=== PATIENT | female | born 1940 | race Caucasian/White ===

== ENCOUNTER 2018-03-15 10:20 | Inpatient (IN) | payer MEDICARE, OTHER, SELFPAY ==
[2018-03-15] VITALS (16 sets, daily range): BP systolic 120–164; BP diastolic 64–100; PULSE 53–69; RESP 12–18; TEMP 36–36.8; O2SAT 95–100; BMI 27.4; BMI 25.8; BMI 25.9
--- NOTE | 2018-03-15 10:41 | EKG12_ITS ---
Test Reason : NEURO Blood Pressure : / mmHG Vent. Rate : 052 BPM Atrial Rate : 052 BPM P-R Int : 166 ms QRS Dur : 082 ms QT Int : 464 ms P-R-T Axes : 031 -12 -37 degrees QTc Int : 431 ms Sinus bradycardia Nonspecific ST and T wave abnormality Abnormal ECG Confirmed by JESENIA WHEAT, LUANA ([id number]), publication editor BRIAN GOLDSMITH ([id number]) on 03/17/2018 1:25:10 PM Referred By: Olegario Mayo Confirmed By:LUANA BA MD
--- NOTE | 2018-03-15 10:41 | CT_ITS ---
STUDY: CT BRAIN WITHOUT CONTRAST REASON FOR EXAM: Female, 78 years old. Left-sided facial droop and weakness. RADIATION DOSAGE (If Supplied By Facility): CTDIvol = ( 44.99 ) mGy, DLP = ( 762.36 ) mGycm TECHNIQUE: Transaxial CT imaging of the brain was performed without administration of intravenous contrast material. Multiplanar reformations are submitted for interpretation. Individualized dose optimization techniques were used for this CT. COMPARISON: None. FINDINGS: Normal soft tissue structures. There is hyperostosis frontalis internus. Normal size ventricles and extra-axial spaces for the patient's age. There are areas of decreased attenuation within the white matter tracts of the supratentorial brain, consistent with microvascular disease changes. There are small punctate calcifications of the basal ganglia which are seen in the aging brain as a normal variant. Normal brainstem. Normal cerebellum. There is no intracranial hemorrhage. There are no findings of an acute ischemic infarction. Normal visualized paranasal sinuses. CT/Brain/Head without Contrast IMPRESSION: No CT evidence of acute intracranial hemorrhage. Electronically Signed: Ainsley Vargas MD at 11:30 EDT , Service support ,
[2018-03-15 10:50] LABS: Bedside Glucose 116 mg/dL (70-110)
[2018-03-15 11:00] LABS: Absolute Lymphocyte Count 2.01 X10^3/ul (0.83-4.51); Absolute Neutrophil Count 3.6 X10^3/uL (2.0-7.7); Basophil# 0.03 X10^3/uL; Basophil% 0.5 % (0-1); Eosinophils% 3.2 % (0-5); Hematocrit 38.7 % (37-47); Lymphocyte # 2.01 X10^3/ul (4.0); Lymphocyte % 32.1 % (19-41); Mean Corp Hgb Conc 33.6 g/gl (32-36); Mean Corpuscular Volume 83.2 fL (81-99); Mean Platelet Vol. 9.1 fl (6.2-12.0); Monocyte# 0.45 X10^3/uL; Monocyte% 7.2 % (0-10); Neutrophil # 3.57 X10^3/uL (2.7-7.7); POSITIVE COUNT NO; POSITIVE DIFFERENTIAL NO; POSITIVE MORPHOLOGY NO; Platelet Count 227 K/mm3 (150-450); RBC Distribution Width CV 13.4 % (11.6-14.6); RBC Distribution Width SD 40.8 fl (35.1-43.9); Red Blood Count 4.65 M/mm3 (4.2-5.4); White Blood Count 6.3 K/mm3 (4.4-11.0)
[2018-03-15] MEDS: Ondansetron 4 MG/2 ML Vial IV ×2 (11:01→15:32)
--- NOTE | 2018-03-15 11:06 | RAD_ITS ---
STUDY: X-RAY CHEST REASON FOR EXAM: Female, 78 years old. Weakness, dizziness, shortness of breath. TECHNIQUE: Portable chest COMPARISON: 06/16/2016. FINDINGS: Generalized pulmonary hyperlucency especially at the apices with mild diffuse coarsening of the interstitium in a pattern most consistent with COPD/emphysema. Correlate smoking history. Minimal airspace opacities at the left lung base adjacent to the cardiac apex are most consistent with interstitial scar or atelectasis. The lungs are otherwise clear. No effusion or pneumothorax. Normal cardiomediastinal silhouette, sandy and pleural margins. No acute osseous or upper abdominal process. RAD/Chest 1 View IMPRESSION: No acute cardiopulmonary process. Electronically Signed: Mirza Patricio, at 12:02 EDT Tel , Service support ,
--- NOTE | 2018-03-15 11:12 | ED.VISSUMM ---
- ER Visit Summary Date of Service: 03/15/18 Chief Complaint: Unsteady gait History of Present Illness: The patient is a 78 F presenting feeling off balance. She states it started when she woke up this morning around 7 AM. States when she tries to walk she falls to the left side. She complains of a spinning sensation. She has not had these symptoms in the past. She denies chest pain or shortness of breath. Denies fever. She complains of mild nausea with no vomiting. No speech or vision changes. Physical Examination: Vitals are stable. Patient is afebrile. Alert no acute distress. HEENT exam is unremarkable. Neck is supple. Lungs are clear and equal bilaterally. Heart is regular rate and rhythm. Abdomen is soft nontender nondistended. Extremities are unremarkable. Skin is warm and dry. NIH equals 2, 1 for right lower extremity weakness, 1 for mild left facial droop. Remainder of exam is unremarkable. Emergency Department Course and Treatment: EKG is sinus rate of 52. Chest x-ray shows no acute process. CT head shows no acute process. CBC, chemistry unremarkable. Patient was given Zofran and continues to be nauseated. She is given Phenergan IV. Repeat NIH is 1, improvement of lower extremity weakness. Discussed with Dr. Mayo for admission. Disposition: Observation Impression: Vertigo, TIA This note was generated with [employer] dictation software. It may contain incorrect words, spelling, and punctuation that were not noted in review of the chart prior to signing ED Disposition - Plan for ED Patient: Chief Complaint: Neuro S/Sx Referrals: Jamal Durham MD [Primary Care Provider] -
[2018-03-15 11:15] LABS: Partial Thromboplast Time 26.1 Seconds (24.1-36.2); Prothrombin Time (Protime)PT. 12.9 SECONDS (11.7-14.9)
--- NOTE | 2018-03-15 11:15 | ED.DCSUM_ITS ---
- ER Visit Summary Date of Service: 03/15/18 Chief Complaint: Unsteady gait History of Present Illness: The patient is a 78 F presenting feeling off balance. She states it started when she woke up this morning around 7 AM. States when she tries to walk she falls to the left side. She complains of a spinning sensation. She has not had these symptoms in the past. She denies chest pain or shortness of breath. Denies fever. She complains of mild nausea with no vomiting. No speech or vision changes. Physical Examination: Vitals are stable. Patient is afebrile. Alert no acute distress. HEENT exam is unremarkable. Neck is supple. Lungs are clear and equal bilaterally. Heart is regular rate and rhythm. Abdomen is soft nontender nondistended. Extremities are unremarkable. Skin is warm and dry. NIH equals 2, 1 for right lower extremity weakness, 1 for mild left facial droo p. Remainder of exam is unremarkable. Emergency Department Course and Treatment: EKG is sinus rate of 52. Chest x-ray shows no acute process. CT head shows no acute process. CBC, chemistry unremarkable. Patient was given Zofran and continues to be nauseated. She is given Phenergan IV. Repeat NIH is 1, improvement of lower extremity weakness. Discussed with Dr. Mayo for admission. Disposition: Observation Impression: Vertigo, TIA This note was generated with [employer] dictation software. It may contain incorrect words, spelling, and punctuation that were not noted in review of the chart prior to signing ED Disposition - Plan for ED Patient: Chief Complaint: Neuro S/Sx Referrals: Jamal Durham MD [Primary Care Provider] -
[2018-03-15 11:19] LABS: Anion Gap 10 (5-15); BUN 16 mg/dL (7-18); BUN/Creat Ratio 15.8 RATIO (10-20); Calcium,Total 9.6 mg/dL (8.5-10.1); Chloride 109 mmol/L (98-107); Creatinine, Serum 1.01 mg/dL (0.55-1.02); EST Glomerular Filtration Rate 56 mL/min (>60); Est Glom Filt Rate - Afr Amer 68 mL/min (>60); Estimated Creatinine Clearance 40.64 ml/min; Glucose 119 mg/dL (74-106); Potassium 3.9 mmol/L (3.5-5.1); Sodium Level 142 mmol/L (136-145)
[2018-03-15] MEDS: proMETHazine 25 MG/ML Syringe 6.25 MG IV (12:31)
--- NOTE | 2018-03-15 13:22 | MRI_ITS ---
STUDY: MRA OF THE HEAD WITHOUT CONTRAST REASON FOR EXAM: Female, 78 years old. Headache and dizziness TECHNIQUE: 3-D [id number] (TOF) imaging was performed with MIPs. The study was performed unenhanced. COMPARISON: None. FINDINGS: Normal bilateral petrous carotid arteries. Normal right cavernous carotid artery with a normal supraclinoid bifurcation. Normal left cavernous carotid artery with a normal supraclinoid bifurcation. Normal right A1 segments of the anterior cerebral artery. Normal left A1 segments of the anterior cerebral artery. Anterior communicating artery not visualized consistent with normal developmental variant Normal bilateral A2 segments of the anterior cerebral arteries. Normal right M1 and M2 segments of the middle cerebral arteries, with a normal M1 bifurcation. Normal left M1 and M2 segments of the middle cerebral arteries, with a normal M1 bifurcation. Normal right posterior communicating artery (PCOM). Normal left posterior communicating artery (PCOM). Normal bilateral vertebral arteries. Normal basilar artery with a normal basilar bifurcation. The visualized bilateral superior cerebellar (SCA) arteries are normal. Normal bilateral P1, P2 and visualized P3 segments of the posterior cerebral arteries. There is no demonstrated aneurysm of the crow of Vazquez. There is no major vessel occlusion or hemodynamically significant stenosis. There is no demonstrated abnormality of the visualized brain. MRI/MRA Head ONLY without Contrast IMPRESSION: Normal MRA of the head Electronically Signed: Joce Bourne MD at 18:56 EDT , Service support ,
--- NOTE | 2018-03-15 13:22 | MRI_ITS ---
STUDY: MRI BRAIN WITHOUT CONTRAST REASON FOR EXAM: Female, 78 years old. Headache dizziness and nausea TECHNIQUE: Standardized multiplanar fat and water weighted pulse sequences were obtained. COMPARISON: None. FINDINGS: Normal size of the ventricles and extra-axial spaces for the patient's age. Mild periventricular white matter ischemic change without mass effect or restricted diffusion. Normal bilateral basal ganglia. Normal thalami. There is no extra-axial fluid accumulation. Normal flow voids within the major intracranial circulation suggesting patency by spin echo criteria. Empty sella deformity. Normal, infundibular stalk, optic chiasm and hypothalamus. Normal tectal plate and pineal gland. Normal midbrain, declan and medulla. Normal cerebellum. Normal basal cisterns. Normal bilateral temporal bones. Normal bilateral internal auditory canals. No demonstrated orbital abnormality, within the constraints of a routine brain study. Minor mucosal thickening of the left maxillary and bilateral ethmoid sinuses. Normal calvarium and skull base. Normal visualized soft tissue structures. Normal visualized upper cervical spine. MRI/Brain without Contrast IMPRESSION: Mild periventricular white matter ischemic changes without evidence for acute infarct. Empty sella deformity of uncertain clinical significance Minor mucosal thickening of left maxillary and bilateral ethmoid sinus Electronically Signed: Joce Bourne MD at 18:41 EDT , Service support ,
--- NOTE | 2018-03-15 13:22 | MRI_ITS ---
STUDY: MRA NECK WITHOUT CONTRAST REASON FOR EXAM: Female, 78 years old. Headaches and nausea TECHNIQUE: Source images were obtained, MIPs were performed. The study was performed unenhanced. COMPARISON: None. FINDINGS: RIGHT CAROTID ARTERIES: Normal right common carotid artery (CCA). Normal right common carotid bulb. Normal origin of the right internal carotid (ICA) artery without a hemodynamically significant stenosis. Normal visualized cervical portion of the right internal carotid artery. Normal origin of the right external carotid artery (ECA). LEFT CAROTID ARTERIES: Normal left common carotid artery (CCA). Normal left common carotid bulb. Normal origin of the left internal carotid (ICA) artery without a hemodynamically significant stenosis. Normal visualized cervical portion of the left internal carotid artery. Normal origin of the left external carotid artery (ECA). VERTEBRAL ARTERIES: Normal antegrade flow within the bilateral vertebral artery without a hemodynamically significant stenosis. MRI/MRA Neck without Contrast IMPRESSION: Normal bilateral cervical carotid and vertebral arteries. Electronically Signed: Joce Bourne MD at 19:09 EDT , Service support ,
--- NOTE | 2018-03-15 15:10 | HP.PCM_ITS ---
Problem List (1) Vertigo Status: Acute (2) NSTEMI (non-ST elevated myocardial infarction) Status: Chronic (3) HLD (hyperlipidemia) Status: Chronic (4) HTN (hypertension) Status: Chronic History of Present Illness Date of Admission: 03/15/18 Chief Complaint: vertigo The patient is a 78 year old F with a hx of NSTEMI, HLD, HTN, and migraine who presents to the ER with c/o vertigo. She states she was fine until this morning. When she stood up out of bed she felt unbalanced and was unable to walk straight. She attempted to walk in her house and was walking into [place]. She has had some nausea and a frontal headache today as well. She denies focal weakness, slurred speech, diplopia. She has no hx of stroke. She does not feel that the room is spinning. She states she has never felt this before. She feels that trying to focus her vision on something, and turning her head at all makes the unbalanced sensation come back. [] Past Medical History Past Medical History (Chronic Problems): Chronic Problems HTN (hypertension) (Chronic) HLD (hyperlipidemia) (Chronic) NSTEMI (non-ST elevated myocardial infarction) (Chronic) Allergies propoxyphene [From Darvon] Allergy (Unknown, Verified 03/15/18 10:23) Rash iron Adverse Reaction (Verified 03/15/18 10:23) Nausea Home Medications: Ambulatory Orders Medication Instructions Recorded Atenolol [Tenormin (beta nik)] 50 mg PO DAILY 02/03/15 Cetirizine HCl [Zyrtec] 10 mg PO DAILY 02/03/15 Fluticasone 0.05% [Flonase Nasal 2 spray NASAL DAILY 02/03/15 [place]] Simvastatin [Zocor] 40 mg PO QHS 02/03/15 traZODone [Desyrel] 100 mg PO QHS 02/03/15 Montelukast [Singulair] 10 mg PO DAILY 06/16/16 Acetaminophen [Tylenol Tablet] 650 mg PO Q6H PRN PRN #0 tablet 06/18/16 Aspirin E.C. 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 Lives: With Family Smoking Status: Never smoker Alcohol: None Drugs: None - *Family History Sibling History Items: Heart Disease Review of Systems Constitutional: Denies: Chills, Fever, Weight Change HEENT: Denies: Head Aches, Sinus Congestion, Sinus Drainage Cardiovascular: Denies: Chest Pain, Palpitations Respiratory: Denies: Cough, Shortness of breath at rest, Sputum production Gastrointestinal: Denies: Abdominal Pain, Nausea, Vomiting Genitourinary: Denies: Dysuria Musculoskeletal: Denies: Joint Pain, Joint Tenderness Skin: Denies: Rash, Wounds Neurological: Reports: Balance problems, Headaches. Denies: Blurred vision, Double vision, Change in Speech, Slurred speech, Confusion, Focal weakness, Numbness, Tingling, Seizures Psychiatric: Denies: Anxiety, Depression, Homicidal Ideations, Suicidal Ideations Hematologic/ Lymphatic: Denies: Easy Bruising, Easy Bleeding VTE Information - Inpt Only VTE Present on Admission: No VTE Mechan Device Prophylaxis: None VTE Pharm Prophylaxis ordered?: Yes Patient Problems: Active and Suspected Problems Vertigo (Acute) - Physical Exam General: Alert, Oriented x3, Cooperative HEENT: Atraumatic, PERRLA, EOMI, Normocephalic Neck: Supple, No JVD, Negative Carotid Bruits Lungs: Clear to auscultation, Normal air movement Cardiovascular: Regular rate, No murmurs Abdomen: Bowel Sounds Present, Soft, Non Tender Extremities: No edema, Capillary Refill Less than 3 Seconds Skin: No rashes, No breakdown Musculoskeletal: No Tenderness to Palpation of Joints or Extremities Neurological: Cranial nerves II-XII grossly intact, - - + nystagmus BL. Psych/Mental Status: Normal Affect, Appropriate, Alert and oriented to time, place, person, mood and affect Vital Signs Temp Pulse Resp BP Pulse Ox 97.6 F L 56 L 17 149/90 H 100 03/15/18 13:29 03/15/18 14:14 03/15/18 13:29 03/15/18 13:29 03/15/18 13:29 Oxygen Flow Rate (L/min) 1 Oxygen Delivery Method Nasal Cannula Weight: 155 lb 6.814 oz Body Mass Index (BMI) 25.8 Finger Stick Blood Glucose 116 Laboratory Tests Past 24 Hrs 10/09/18 10/09/18 10/09/18 10:49 10:49 10:49 WBC 6.3 RBC 4.65 Hgb 13.0 Hct 38.7 MCV 83.2 MCH 28.0 MCHC 33.6 RDW 13.4 RDW Differential 40.8 Plt Count 227 MPV 9.1 Immature Gran % (Auto) 0.000 Neut % (Auto) 57.0 Lymph % (Auto) 32.1 Callahan % (Auto) 7.2 Eos % (Auto) 3.2 Baso % (Auto) 0.5 Absolute Neuts (auto) 3.6 Absolute Lymphs (auto) 2.01 Total Counted Not Reportable PT 12.9 INR 1.0 APTT 26.1 Sodium 142 Potassium 3.9 Chloride 109 H Carbon Dioxide 23.0 Anion Gap 10 BUN 16 Creatinine 1.01 Estim Creat Clear Calc 40.64 Est GFR (MDRD) Af Amer 68 Est GFR (MDRD) Non-Af 56 L BUN/Creatinine Ratio 15.8 Glucose 119 H Calcium 9.6 Troponin I < 0.015 POC Glucose 03/15/18 10:44 POC Glucose 116 H Assessment/Plan All Active Problems Vertigo (Acute) Unstable angina pectoris (Acute) 1. Vertigo - marked by unsteady gait and feeling of inbalance. r/o CVA. CT brain neg. MRI/A pending. Defer neuro eval and echo until MRI/As back. Symptoms are positional. Possibly BPPV. Pt already on asa/statin. Trop neg. CXR neg. 2. Hx CAD, NSTEMI - continue home meds 3. HTN - continue home meds. Fluctuant while here so far. Continue to trend. 4. HLD - Continue statin. DVT ppx: lovenox DC planning: PTOT. This patient was seen by Dilip Springer PA-C under the supervision of Dr. Mayo.
[2018-03-15] MEDS: 0.9% Normal Saline 1,000 ML 100 ML IV (15:28)
[2018-03-15] MEDS: 0.9% NaCl Peripheral Flush Adult/Peds IV (15:28)
[2018-03-15] MEDS: Ketorolac 30 MG/ML Syringe IV (15:35)
[2018-03-15] MEDS: Acetaminophen 325 MG Tablet 650 MG PO (20:31)
[2018-03-15] MEDS: Atorvastatin Calcium 20 MG Tablet PO (21:49)
[2018-03-15] MEDS: diazePAM 2 MG Tablet PO (21:49)
[2018-03-15] MEDS: traZODone 100 MG Tablet PO (21:49)
[2018-03-16] VITALS (12 sets, daily range): BP systolic 120–149; BP diastolic 68–86; PULSE 48–83; RESP 13–16; TEMP 36.6–36.8; O2SAT 95–98; BMI 25.8
[2018-03-16] MEDS: 0.9% Normal Saline 1,000 ML 100 ML IV ×3 (03:29→22:53)
[2018-03-16] MEDS: diazePAM 2 MG Tablet PO ×4 (05:37→21:33)
[2018-03-16] MEDS: Acetaminophen 325 MG Tablet 650 MG PO (08:31)
[2018-03-16] MEDS: Atenolol 50 MG Tablet PO (08:33)
[2018-03-16] MEDS: Aspirin E.C. 81 MG Tablet PO (08:33)
[2018-03-16] MEDS: Pantoprazole Sodium 40 MG Tablet PO (08:34)
[2018-03-16] MEDS: Ketorolac 30 MG/ML Syringe IV (11:44)
[2018-03-16] MEDS: Ondansetron 4 MG/2 ML Vial IV ×2 (11:45→21:33)
--- NOTE | 2018-03-16 14:07 | PCM.PROGNOTE ---
Patient Problems: Active and Suspected Problems Vertigo (Acute) Subjective: Pt continues to have significant dizziness and nausea with vomiting, worse with movement. No focal weakness. Little improvement with valium so far. - Physical Exam General: Alert, Oriented x3, Cooperative HEENT: Atraumatic, PERRLA, EOMI, Normocephalic Neck: Supple, No JVD, Negative Carotid Bruits Lungs: Clear to auscultation, Normal air movement Cardiovascular: Regular rate, No murmurs Abdomen: Bowel Sounds Present, Soft, Non Tender Extremities: No edema, Capillary Refill Less than 3 Seconds Skin: No rashes, No breakdown Musculoskeletal: No Tenderness to Palpation of Joints or Extremities Neurological: Cranial nerves II-XII grossly intact Psych/Mental Status: Normal Affect, Appropriate Vital Signs Temp Pulse Resp BP Pulse Ox 97.9 F 53 L 16 148/68 H 97 03/16/18 08:22 03/16/18 11:05 03/16/18 08:22 03/16/18 08:22 03/16/18 08:22 Oxygen Flow Rate (L/min) 1 Oxygen Delivery Method Room Air Weight: 155 lb 6.814 oz Body Mass Index (BMI) 25.8 Finger Stick Blood Glucose 116 Intake and Output for Last 24 Hours 03/14/18 03/15/18 03/16/18 23:59 23:59 23:59 Intake Total 986 / 986 1140 / 1140 Output Total 0 / 0 Balance 986 / 986 1140 / 1140 Medical Necessity - Tobacco Use Smoking Status: Never smoker Assessment/Plan All Active Problems Vertigo (Acute) Unstable angina pectoris (Acute) 1. Vertigo suspect BPPV - marked by unsteady gait and feeling of inbalance. CT brain neg. MRI/A negative for stroke. Symptoms are positional. Probably BPPV. Pt already on asa/statin. Trop neg. CXR neg. PTOT, vestibular therapy Meclizine added. Continue IV fluids. 2. Hx CAD, NSTEMI - continue home meds 3. HTN - continue home meds. Fluctuant while here so far. Continue to trend. 4. HLD - Continue statin. DVT ppx: lovenox DC planning: PTOT. This patient was seen by Dilip Springer PA-C under the supervision of Dr. Mayo.
[2018-03-16] MEDS: Meclizine 12.5 MG Tablet PO (14:35)
[2018-03-16] MEDS: Atorvastatin Calcium 20 MG Tablet PO (21:33)
[2018-03-16] MEDS: traZODone 100 MG Tablet PO (21:33)
[2018-03-16] MEDS: 0.9% NaCl Peripheral Flush Adult/Peds IV (21:34)
[2018-03-17] VITALS (12 sets, daily range): BP systolic 140–151; BP diastolic 73–86; PULSE 50–63; RESP 14–18; TEMP 36.4–37.2; O2SAT 94–100
[2018-03-17] MEDS: Acetaminophen 325 MG Tablet 650 MG PO ×2 (06:47→20:43)
[2018-03-17] MEDS: Pantoprazole Sodium 40 MG Tablet PO (08:07)
[2018-03-17] MEDS: Aspirin E.C. 81 MG Tablet PO (08:07)
[2018-03-17] MEDS: Ketorolac 30 MG/ML Syringe IV (08:09)
[2018-03-17] MEDS: Meclizine 12.5 MG Tablet PO (08:09)
[2018-03-17] MEDS: diazePAM 2 MG Tablet PO ×4 (08:10→20:56)
[2018-03-17] MEDS: 0.9% Normal Saline 1,000 ML 100 ML IV (08:12)
--- NOTE | 2018-03-17 08:44 | CASEMGMT ---
SW spoke with patient regarding d/c plan. SW asked her if she feels she is going to need to go to a nursing facility for rehab. She said she has to go home. She said she lives with her daughter and grandsons. SW told her that she may not feel 100% better at time of d/c and SW just wanted to make sure she can go home at d/c. She again said she has to be okay to go home. Carly DE LA VEGA MSW
[2018-03-17] MEDS: Atenolol 50 MG Tablet PO (09:35)
--- NOTE | 2018-03-17 11:54 | CASEMGMT ---
RN JEREMIAH said patient has financial concerns. SW spoke with patient and gave her the pamphlet on help with Medicare as well as application. SW also gave her the pamphlet on help with Medicare D. She also was given information on [facility] transportation. Carly DE LA VEGA MSW
--- NOTE | 2018-03-17 12:47 | CASEMGMT ---
Patient's daughter in [place] is concerned about patient going home as there is no one home with her during the day. SW asked patient about going to a SNF earlier today and she wants to go home. SW asked patient if she wants to go to a SNF. She said she really wants to go home. Her other daughter then called while SW talking with her. SW explained home health and what it entails. It was decided we will see how patient does with therapy today and tomorrow and go from there. Patient was in agreement with this plan. Plan: home with HH vs SNF. Patient wants home, but her daughter wants SNF. Await to see how patient does with therapy today and tomorrow. Carly DE LA VEGA MSW
--- NOTE | 2018-03-17 12:50 | CASEMGMT ---
ROBE DANILES INITIAL REVIEW ASSESSMENT Face to Face with patient for initial transition planning/care coordination assessment. ROBE DANIELS introduced self and role at [facility]. Care providers, pharmacy, and demographics verified. PCP: Dr Durham Preferred Pharmacy: [facility], [facility] on d/c day only. Insurance: [facility] A & B Prescription Benefit: Yes Living Will/HPOA: Does not have but would like further information. SW consult made. Living Arrangements: Lives with her daughter and 3 grandsons. Lives in one-story home w/one step to enter. States daughter assists with some meals and chores. Pt does her own bills/finances and medications. Pt states she was prior to personal care ADL's such as bathing and dressing prior to hospitalization. Pt states does not have a shower chair/tub bench but would like to get one. Made aware this is not an item covered under [facility], but that this could be purchased @ drug store or medical [employer] or [employer]. Pt states she does have a tub bath that she could use and that she would wait until her daughter was home to be able to assist her with bathing. Transportation: Drove prior to hospitalization. Unable to drive currently d/t dizziness. States her daughter is unable to provide transportation during the week d/t she works. Pt states she does not have other support for transportation and does not have the finances to pay for a cab. RYAN made aware and [facility] will provide [facility] Van transportation information. Daughter, Diamante, in room with pt after assessment completed and states her son may be able to provide transportation at times or she may be able to b/w her bus driving schedule. DME: Pt uses a cane @ home. States she thinks she has a walker but unsure. ROBE DANIELS spoke with pt's daughter, Diamante, who states she does not think pt has a walker any longer and requests for pt to get a rollator if possible. Script obtained from Nicolette Smith NP, and faxed to [place] [employer]. Awaiting financial coverage verification. HHC/SNF: Pt states she does not want to go to a SNF and agreeable to HHC services. Pt voices no preference of HHC agency. Referral made to [facility] and pt accepted. Pt's daughter, Diamante, in room later, after assessment and voices concerns of pt returning home if she is still dizzy and feels pt would be safer @ a SNF d/t she is home alone during the day. Pt continues to state she wishes to return home and does not want to go to a SNF at this time. Pt did state she does want to do what is safest and does have some concerns of falling but that she just wants to go home. Pt states if she continues to have dizziness by tomorrow, she may consider SNF, depending on how well she does with therapy. Pt's other daughter, Linette, also voiced concerns to pt's RN about pt discharging home. Diamante states she will call Linette and update her on discussion with REGISTERED RADIOLOGIC TECHNOLOGIST and RN CM and decision of HHC vs SNF has not been made at this time. SW C/S made for Adv Directives and Financial concerns. D/C Plan: Undetermined at this time. Home w/HHC vs SNF. CM to follow for any further discharge planning needs that may arise. [place] BESS RN CM
--- NOTE | 2018-03-17 13:17 | PCM.PROGNOTE ---
Patient Problems: Active and Suspected Problems Vertigo (Acute) Subjective: Patient seen and examined. States she feels mildly improved although continues to have dizziness with movement and drifting when ambulating. Denies further nausea. Wishes to return home tomorrow. - Physical Exam General: Alert, Oriented x3, Cooperative, No apparent distress HEENT: Atraumatic, PERRLA, EOMI, Normocephalic Neck: Supple, No JVD, Negative Carotid Bruits Lungs: Clear to auscultation, Normal air movement Cardiovascular: Regular rate, Regular Rhythm, Normal S1, Normal S2, No murmurs Abdomen: Bowel Sounds Present, Soft, Non Tender, Non-Distended Extremities: No clubbing, No cyanosis, No edema, Capillary Refill Less than 3 Seconds Skin: No rashes, No breakdown Musculoskeletal: No Tenderness to Palpation of Joints or Extremities Neurological: Cranial nerves II-XII grossly intact, Neuro grossly intact Psych/Mental Status: Normal Affect, Appropriate Vital Signs Temp Pulse Resp BP Pulse Ox 98.8 F 52 L 18 143/81 H 98 03/17/18 09:22 03/17/18 11:13 03/17/18 10:00 03/17/18 09:22 03/17/18 09:22 Oxygen Flow Rate (L/min) 1 Oxygen Delivery Method Room Air Weight: 155 lb 6.814 oz Body Mass Index (BMI) 25.8 Finger Stick Blood Glucose 116 Intake and Output for Last 24 Hours 03/15/18 03/16/18 03/17/18 23:59 23:59 23:59 Intake Total 986 / 986 2581 / 2581 894.8 / 894.8 Output Total 0 / 0 1000 / 1000 Balance 986 / 986 2581 / 2581 -105.2 / -105.2 Medical Necessity - Tobacco Use Smoking Status: Never smoker Assessment/Plan All Active Problems Vertigo (Acute) Unstable angina pectoris (Acute) 1. Vertigo, suspected BPPV-slowly improving. Patient continues to have unsteady gait. PT/OT. Vestibular therapy. Brain CT negative. MRI of brain without acute infarct. Patient's dizziness/unsteady gaits are positional. Continue scheduled Valium. Antivert 3 times daily as needed. Patient declines SNF. Plan for home with home health if continued improvement tomorrow. 2. History of CAD, NSTEMI-continue aspirin, statin, atenolol. 3. Hypertension-mildly elevated, continue home atenolol regimen. 4. Hyperlipidemia- continue statin. 5. GERD-continue PPI. DVT prophylaxis-Lovenox subcu. This patient was seen by MAXINE Solis under the supervision of Dr. Mayo.
--- NOTE | 2018-03-17 18:40 | NURSING ---
all care completed by jose chilel was under the supervision of this RN
[2018-03-17] MEDS: traZODone 100 MG Tablet PO (20:54)
[2018-03-17] MEDS: Atorvastatin Calcium 20 MG Tablet PO (20:54)
[2018-03-18] VITALS (8 sets, daily range): BP systolic 130–156; BP diastolic 76–88; PULSE 52–62; RESP 16–18; TEMP 36.5–36.8; O2SAT 93–98
[2018-03-18] MEDS: diazePAM 2 MG Tablet PO ×2 (08:10→13:54)
[2018-03-18] MEDS: Pantoprazole Sodium 40 MG Tablet PO (08:10)
[2018-03-18] MEDS: Atenolol 50 MG Tablet PO (08:10)
[2018-03-18] MEDS: Aspirin E.C. 81 MG Tablet PO (08:10)
--- NOTE | 2018-03-18 10:42 | CASEMGMT ---
Call to Munira at [facility] and she is made aware that pt to be discharged today, voices understanding. Order is already in. Becca NAGEL CM
--- NOTE | 2018-03-18 11:00 | PCM.DC ---
- Discharge Diagnoses Current Active Problems: Current Active and Chronic Problems Vertigo (Acute) You will use the following diet at home:: Cardiac Discharge Activity: Return to Normal Activity, Use Walker Call your doctor if you observe: Shortness of breath, Dizziness, Fainting spells, Chest pain Allergies/Adverse Reactions: Allergies propoxyphene [From Darvon] Allergy (Unknown, Verified 03/15/18 10:23) Rash iron Adverse Reaction (Verified 03/15/18 10:23) Nausea Medications to take at Discharge Atenolol [Tenormin (beta nik)] 50 mg PO DAILY 02/03/15 Cetirizine HCl [Zyrtec] 10 mg PO DAILY 02/03/15 Fluticasone 0.05% [Flonase Nasal [place]] 2 spray NASAL DAILY 02/03/15 Simvastatin [Zocor] 40 mg PO QHS 02/03/15 traZODone [Desyrel] 100 mg PO QHS 02/03/15 Montelukast [Singulair] 10 mg PO DAILY 06/16/16 Acetaminophen [Tylenol Tablet] 650 mg PO Q6H PRN PRN #0 tablet 06/18/16 Aspirin E.C. [Ecotrin] 81 mg PO DAILY@0800 tablet 06/18/16 Pantoprazole Sodium [Protonix] 40 mg PO DAILY 03/15/18 Diazepam [Valium] 2 mg PO TID #6 tablet 03/18/18 The following prescriptions were given: Diazepam [Valium] 2 mg PO TID #6 tablet Primary Care Physician: Jamal Durham MD [Primary Care Provider] - Please follow up with your Primary Care Physician in: 1 Week Test Results: Test results from this visit will be discussed in further detail at your follow-up appointment, if applicable. Please Follow Up With: Orion Salgado MD - ENT: [phone] When: 2-3 days Proposed Discharge Date: 03/18/18
--- NOTE | 2018-03-18 11:04 | PCM.DC.SUM ---
Discharge Date and Diagnosis Date of Admission: 03/15/18 Date of Discharge: 03/18/18 - Primary Discharge Diagnosis Active and Suspected Problems 1. Vertigo, BPPV 2. CAD, Hx of NSTEMI 3. Hypertension 4. Hyperlipidemia 5. GERD - Secondary Discharge Diagnosis Chronic Problems HTN (hypertension) (Chronic) HLD (hyperlipidemia) (Chronic) NSTEMI (non-ST elevated myocardial infarction) (Chronic) Hospital Course and Treatment Imaging Results: Diagnostic Data Brain CT 03/15/18 10:41 IMPRESSION: No CT evidence of acute intracranial hemorrhage. Electronically Signed: Ainsley Vargas MD at 11:30 EDT , Service support , Chest X-Ray 03/15/18 11:06 IMPRESSION: No acute cardiopulmonary process. Electronically Signed: Mirza Patricio at 12:02 EDT Tel , Service support , Brain MRI 03/15/18 13:22 IMPRESSION: Mild periventricular white matter ischemic changes without evidence for acute infarct. Empty sella deformity of uncertain clinical significance Minor mucosal thickening of left maxillary and bilateral ethmoid sinus Electronically Signed: Joce Bourne MD at 18:41 EDT , Service support , Head MRA 03/15/18 13:22 IMPRESSION: Normal MRA of the head Electronically Signed: Joce Bourne MD at 18:56 EDT , Service support , Neck MRA 03/15/18 13:22 IMPRESSION: Normal bilateral cervical carotid and vertebral arteries. Electronically Signed: Joce Bourne MD at 19:09 EDT , Service support , Operations: None Procedures: None Summary of Care Provided: The patient is a 78 year old F admitted 03/15/2018 due to vertigo. 1. Vertigo, suspected BPPV-Improved. PT/OT at DC. Vestibular therapy. Brain CT negative. MRI of brain without acute infarct. Patient's dizziness/unsteady gaits are positional. Patient declines SNF. Home with home health. Valium TID PRN X2 days at DC. Follow-up with primary care physician in 1 week. Follow-up with ENT Dr. Salgado in 2-3 days. 2. History of CAD, NSTEMI-continue aspirin, statin, atenolol. 3. Hypertension-mildly elevated, continue home atenolol regimen. 4. Hyperlipidemia- continue statin. 5. GERD-continue PPI. General: Alert, Oriented x3, Cooperative, No apparent distress HEENT: Atraumatic, PERRLA, EOMI, Normocephalic Neck: Supple, No JVD, Negative Carotid Bruits Lungs: Clear to auscultation, Normal air movement Cardiovascular: Regular rate, Regular Rhythm, Normal S1, Normal S2, No murmurs Abdomen: Bowel Sounds Present, Soft, Non Tender, Non-Distended Extremities: No clubbing, No cyanosis, No edema, Capillary Refill Less than 3 Seconds Skin: No rashes, No breakdown Musculoskeletal: No Tenderness to Palpation of Joints or Extremities Neurological: Cranial nerves II-XII grossly intact, Neuro grossly intact Psych/Mental Status: Normal Affect, Appropriate Patient seen exam prior to discharge. Physical assessment as noted above. Patient stable for discharge home with home health. This patient was seen by MAXINE Solis under the supervision of Dr. Mayo. - Physical Exam Vital Signs Temp Pulse Resp BP Pulse Ox 97.7 F L 62 16 150/78 H 98 03/18/18 08:15 03/18/18 08:15 03/18/18 08:15 03/18/18 08:15 03/18/18 08:15 Oxygen Flow Rate (L/min) 1 Oxygen Delivery Method Room Air Weight: 155 lb 6.814 oz Body Mass Index (BMI) 25.8 Finger Stick Blood Glucose 116 Intake and Output for Last 24 Hours 03/16/18 03/17/18 03/18/18 23:59 23:59 23:59 Intake Total 2581 / 2581 1434.8 / 1434.8 100 / 100 Output Total 0 / 0 1550 / 1550 Balance 2581 / 2581 -115.2 / -115.2 100 / 100 Discharge Diet: Low fat/ Low Cholesterol Discharge Activity: Return to Normal Activity, Use Walker Call your doctor if you observe: Shortness of breath, Dizziness, Fainting spells, Chest pain Home Medications: Medications to take at Discharge Atenolol [Tenormin (beta nik)] 50 mg PO DAILY 02/03/15 Cetirizine HCl [Zyrtec] 10 mg PO DAILY 02/03/15 Fluticasone 0.05% [Flonase Nasal [place]] 2 spray NASAL DAILY 02/03/15 Simvastatin [Zocor] 40 mg PO QHS 02/03/15 traZODone [Desyrel] 100 mg PO QHS 02/03/15 Montelukast [Singulair] 10 mg PO DAILY 06/16/16 Acetaminophen [Tylenol Tablet] 650 mg PO Q6H PRN PRN #0 tablet 06/18/16 Aspirin E.C. [Ecotrin] 81 mg PO DAILY@0800 tablet 06/18/16 Pantoprazole Sodium [Protonix] 40 mg PO DAILY 03/15/18 Diazepam [Valium] 2 mg PO TID #6 tablet 03/18/18 Following Prescrptions Were Given to Patient: Diazepam [Valium] 2 mg PO TID #6 tablet Primary Care Physician: Jamal Durham MD [Primary Care Provider] - Please follow up with your Primary Care Physician in: 1 Week Please Follow Up With: Orion Salgado MD - ENT: [phone] When: 2-3 days Disposition: Home with Home Health Minutes spent on discharge:: 35 Patient Condition:: Stable Medical Necessity - Tobacco Use Smoking Status: Never smoker Meaningful Use Info Meaningful Use Diagnoses (Choose all that apply): None applicable
--- NOTE | 2018-03-18 11:08 | CASEMGMT ---
ROBE DANIELS NOTE: *PT/OT evals have been completed today. Evals reviewed and had discussion with PT re: pt's progress. Pt continues to state she does not want to go to a SNF and she wants to go home w/HHC services. *Financials completed by [employer] for rollator and they have spoken to pt. Pt states they do want the rollator still and her daughter will be calling [employer] to pay the [id number] cost. [place] [facility] [place]/18/18. Pt and daughter made aware. CM to follow for further discharge planning needs that may arise. [place] VACAN ROBE CM
--- NOTE | 2018-03-18 11:09 | DS.PCM_ITS ---
Discharge Date and Diagnosis Date of Admission: 03/15/18 Date of Discharge: 03/18/18 - Primary Discharge Diagnosis Active and Suspected Problems 1. Vertigo, BPPV 2. CAD, Hx of NSTEMI 3. Hypertension 4. Hyperlipidemia 5. GERD - Secondary Discharge Diagnosis Chronic Problems HTN (hypertension) (Chronic) HLD (hyperlipidemia) (Chronic) NSTEMI (non-ST elevated myocardial infarction) (Chronic) Hospital Course and Treatment Imaging Results: Diagnostic Data Brain CT 03/15/18 10:41 IMPRESSION: No CT evidence of acute intracranial hemorrhage. Electronically Signed: Ainsley Vargas MD at 11:30 EDT , Service support , Chest X-Ray 03/15/18 11:06 IMPRESSION: No acute cardiopulmonary process. Electronically Signed: Mirza Patricio at 12:02 EDT Tel , Service support , Brain MRI 03/15/18 13:22 IMPRESSION: Mild periventricular white matter ischemic changes without evidence for acute infarct. Empty sella deformity of uncertain clinical significance Minor mucosal thickening of left maxillary and bilateral ethmoid sinus Electronically Signed: Joce Bourne MD at 18:41 EDT , Service support , Head MRA 03/15/18 13:22 IMPRESSION: Normal MRA of the head Electronically Signed: Joce Bourne MD at 18:56 EDT , Service support , Neck MRA 03/15/18 13:22 IMPRESSION: Normal bilateral cervical carotid and vertebral arteries. Electronically Signed: Joce Bourne MD at 19:09 EDT , Service support , Operations: None Procedures: None Summary of Care Provided: The patient is a 78 year old F admitted 03/15/2018 due to vertigo. 1. Vertigo, suspected BPPV-Improved. PT/OT at DC. Vestibular therapy. Brain CT negative. MRI of brain without acute infarct. Patient's dizziness/unsteady gaits are positional. Patient declines SNF. Home with home health. Valium TID PRN X2 days at DC. Follow-up with primary care physician in 1 week. Follow-up with ENT Dr. Salgado in 2-3 days. 2. History of CAD, NSTEMI-continue aspirin, statin, atenolol. 3. Hypertension-mildly elevated, continue home atenolol regimen. 4. Hyperlipidemia- continue statin. 5. GERD-continue PPI. General: Alert, Oriented x3, Cooperative, No apparent distress HEENT: Atraumatic, PERRLA, EOMI, Normocephalic Neck: Supple, No JVD, Negative Carotid Bruits Lungs: Clear to auscultation, Normal air movement Cardiovascular: Regular rate, Regular Rhythm, Normal S1, Normal S2, No murmurs Abdomen: Bowel Sounds Present, Soft, Non Tender, Non-Distended Extremities: No clubbing, No cyanosis, No edema, Capillary Refill Less than 3 Seconds Skin: No rashes, No breakdown Musculoskeletal: No Tenderness to Palpation of Joints or Extremities Neurological: Cranial nerves II-XII grossly intact, Neuro grossly intact Psych/Mental Status: Normal Affect, Appropriate Patient seen exam prior to discharge. Physical assessment as noted above. Patient stable for discharge home with home health. This patient was seen by MAXINE Solis under the supervision of Dr. Mayo. - Physical Exam Vital Signs Temp Pulse Resp BP Pulse Ox 97.7 F L 62 16 150/78 H 98 03/18/18 08:15 03/18/18 08:15 03/18/18 08:15 03/18/18 08:15 03/18/18 08:15 Oxygen Flow Rate (L/min) 1 Oxygen Delivery Method Room Air Weight: 155 lb 6.814 oz Body Mass Index (BMI) 25.8 Finger Stick Blood Glucose 116 Intake and Output for Last 24 Hours 03/16/18 03/17/18 03/18/18 23:59 23:59 23:59 Intake Total 2581 / 2581 1434.8 / 1434.8 100 / 100 Output Total 0 / 0 1550 / 1550 Balance 2581 / 2581 -115.2 / -115.2 100 / 100 Discharge Diet: Low fat/ Low Cholesterol Discharge Activity: Return to Normal Activity, Use Walker Call your doctor if you observe: Shortness of breath, Dizziness, Fainting spe lls, Chest pain Home Medications: Medications to take at Discharge Atenolol [Tenormin (beta nik)] 50 mg PO DAILY 02/03/15 Cetirizine HCl [Zyrtec] 10 mg PO DAILY 02/03/15 Fluticasone 0.05% [Flonase Nasal [place]] 2 spray NASAL DAILY 02/03/15 Simvastatin [Zocor] 40 mg PO QHS 02/03/15 traZODone [Desyrel] 100 mg PO QHS 02/03/15 Montelukast [Singulair] 10 mg PO DAILY 06/16/16 Acetaminophen [Tylenol Tablet] 650 mg PO Q6H PRN PRN #0 tablet 06/18/16 Aspirin E.C. [Ecotrin] 81 mg PO DAILY@0800 tablet 06/18/16 Pantoprazole Sodium [Protonix] 40 mg PO DAILY 03/15/18 Diazepam [Valium] 2 mg PO TID #6 tablet 03/18/18 Following Prescrptions Were Given to Patient: Diazepam [Valium] 2 mg PO TID #6 tablet Primary Care Physician: Jamal Durham MD [Primary Care Provider] - Please follow up with your Primary Care Physician in: 1 Week Please Follow Up With: Orion Salgado MD - ENT: [phone] When: 2-3 days Disposition: Home with Home Health Minutes spent on discharge:: 35 Patient Condition:: Stable Medical Necessity - Tobacco Use Smoking Status: Never smoker Meaningful Use Info Meaningful Use Diagnoses (Choose all that apply): None applicable
== END 2018-03-18 16:47 | disposition home or self-care (01) | DRG 149 ==
LOC: ED 11:10 → PCU 12:54
PROVIDERS: Admitting Provider Internal Medicine; Emergency Provider Emergency Medicine; Family Provider Family Medicine; PCP Family Medicine; Referring Provider Internal Medicine; Visit Provider Internal Medicine
DX: R42 Dizziness and giddiness (principal); I25.10 Atherosclerotic heart disease of native coronary artery without angina pectoris; I10 Essential (primary) hypertension; E78.5 Hyperlipidemia, unspecified; I25.2 Old myocardial infarction; K21.9 Gastro-esophageal reflux disease without esophagitis; Z79.82 Long term (current) use of aspirin; Z79.899 Other long term (current) drug therapy
CPT/HCPCS: 70450; 70544; 70547; 70551; 71045; 80048; 82962; 84484; 85025; 85610; 85730; 93005; 97162; 97165; 97530; 97535; 99285; J7030; 90686; A4216; J2405